=== PATIENT | male | born 2000 | race Caucasian/White ===

== ENCOUNTER 2025-07-07 15:54 | Emergency (ER) | payer SELFPAY ==
[~2025-07-07] VITALS: Ht 177.8 cm; Wt 98.0 kg
[2025-07-07 15:58] VITALS: O2SAT 100
[2025-07-07 16:12] VITALS: BP 133/87; PULSE 94; RESP 18; TEMP 36.7
[2025-07-07] MEDS ORDERED: KETAMINE HCL 50 MG/ML 10ML IV ONE (19:15)
[2025-07-07] MEDS ORDERED: MIDAZOLAM HCL 2 MG/2 ML VIAL IV ONE (19:15)
== END 2025-07-07 20:01 | disposition left against medical advice (07) ==
LOC: ER 15:54
DX: S52.222A Displaced transverse fracture of shaft of left ulna, initial encounter for closed fracture (principal); X58.XXXA Exposure to other specified factors, initial encounter; Y93.89 Activity, other specified; Y92.89 Other specified places as the place of occurrence of the external cause; Y99.8 Other external cause status
CPT/HCPCS: 73100; 99283